=== PATIENT | female | born 1950 | race Caucasian/White ===

== ENCOUNTER 2016-10-07 20:26 | Emergency (ER) | payer MEDICARE, MEDICAID ==
[2016-10-07 20:45] VITALS: BP 176/76
--- NOTE | 2016-10-07 21:08 | EDM.PDOC ---
ED HPI LOWER BACK PAIN/INJURY - General Chief Complaint: Back Pain or Injury Stated Complaint: BACK PAIN Time Seen by Provider: 10/07/16 21:04 Source of Information: Reports: Provider History Limitations: Reports: No limitations - History of Present Illness INITIAL COMMENTS - FREE TEXT/NARRATIVE: HISTORY AND PHYSICAL: [Mentally challenged woman who is brought in by her caregiver having been found in the bathroom in complaining of her back pain] History of Present Illness: [Caregiver states they found her in a semisitting position with her head resting against the wall. The nurse recommended she be brought to the emergency room for further evaluation.] Review of Systems: As per history of present illness and below otherwise all systems reviewed and negative. Past medical history: As per history of present illness and as reviewed below otherwise noncontributory. Surgical history: As per history of present illness and as reviewed below otherwise noncontributory. Social history: No reported history of drug or alcohol abuse. Family history: As per history of present illness and as reviewed below otherwise noncontributory. Physical exam: Patient is alert animated in the room tries to speak but it is unrecognizable speech pattern HEENT: Atraumatic, normocehpalic, pupils reactive, negative for conjunctival pallor or scleral icterus, mucous membranes moist, throat clear, neck supple, nontender, trachea midline. Nontender with palpation to her head there are no abrasions to the scalp. No hematomas are noted. Lungs: Clear to auscultation, breath sounds equal bilaterally, chest non tender. Heart: S1S2, regular, negative for clicks, rubs, or JVD. Abdomen: Soft, nondistended, nontender. Negative for masses or hepatossplenmegaly. Negative for costovertebral tenderness. Nontender with palpation to her back no abrasions were noted. Full range of motion is from Pelvis: Stable nontender. Genitourinary: Deferred. Rectal: Deferred Extremities: Atraumatic, negative for cords or calf pain. Patient has joint degeneration and arthritic hands. Her examination she keeps hitting her right hand I asked about pain. Full range of motion noted to both extremities upper and lower Neurovascular unremarkable. Neuro: Awake, alert, oriented. Cranial nerves II through XII unremarkable. Cerebellum unremarkable. Motor and sensory unremarkable throughout. Exam nonfocal. Diagnostics: [X-rays 2 right hand left elbow and lumbar spine all negative with degenerative joint disease] Therapeutics: [] Impression: [Degenerative joint disease] Plan: [Home Maintain regular activity Tylenol for discomfort Followup with her primary care provider] Definitive disposition and diagnosis as appropriate pending reevaluation and review of above. Timing/Duration: Reports: Hour(s): Location: Reports: lower Quality: Reports: Ache Severity: mild Place of Occurrence: home Improves with: Reports: None Worsens with: Reports: None Context: Reports: fall (in her bathroom) - Related Data Allergies/ADRs: Allergies Allergy/AdvReac Type Severity Reaction Status Date / Time ibuprofen Allergy Other Verified 10/07/16 20:53 Home Meds: Home Meds Maynor Carb/MgOx/D3/B12/FA/B6/Bor [Folgard OS] 1 tab PO BID 08/01/15 [History] Calcium Polycarbophil [Fiber Tabs] 1 tab PO BID 08/01/15 [History] Omeprazole 1 cap PO DAILY 08/01/15 [History] Polyvinyl Alcohol/Povidone/Pf [Refresh Classic Eye Drops] 1 drop EYEBOTH BID [History] Ramipril [Altace] 1 tab PO DAILY 08/01/15 [History] Multivitamins [Tab-A-Digna] 1 tab PO DAILY 04/13/16 [History] Past Medical History HEENT History: Reports: None Other HEENT History: wears glasses Cardiovascular History: Reports: Hypertension Respiratory History: Reports: None Gastrointestinal History: Reports: GERD Genitourinary History: Reports: None 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 Nonverbal. Supposedly understand but hard to assess sec. to agitation. Psychiatric History: Reports: Other (see below) Other Psychiatric History: mentally challenged Endocrine/Metabolic History: Reports: None Hematologic History: Reports: None Immunologic History: Reports: None Oncologic (Cancer) History: Reports: None Dermatologic History: Reports: None - Past Surgical History Head Surgeries/Procedures: Reports: None HEENT Surgical History: Reports: None Cardiovascular Surgical History: Reports: None Respiratory Surgical History: Reports: None GI Surgical History: Reports: Colonoscopy Female Surgical History: Reports: None Endocrine Surgical History: Reports: None Neurological Surgical History: Reports: None Musculoskeletal Surgical History: Reports: Hip replacement, Knee replacement, Shoulder replacement Social & Family History - Family History Family Medical History: Noncontributory - Tobacco Use Smoking Status *Q: Never Smoker - Caffeine Use Caffeine Use: Reports: Coffee - Recreational Drug Use Recreational Drug Use: No Drug Use in Last 12 Months: No ED ROS GENERAL - Review of Systems Review Of Systems: ROS reveals no pertinent complaints other than HPI. ED EXAM,LOWER BACK PAIN/INJURY - Physical Exam Exam: See Below (see dictation) Course - Vital Signs Last Recorded V/S: Last Vital Signs Temp 36.9 C 10/07/16 20:42 Pulse 93 10/07/16 20:42 Resp 20 10/07/16 20:42 BP 176/76 H 10/07/16 20:42 Pulse Ox 95 10/07/16 20:42 - Orders/Labs/Meds Orders: Active Orders 24 hr Category Date Time Status Elbow 2V Lt [CR] Stat Exams 10/07/16 21:43 Taken Hand 2V Rt [CR] Stat Exams 10/07/16 21:08 Taken Lumbar Spine 2 or 3V [CR] Stat Exams 10/07/16 21:08 Taken Departure - Departure Time of Disposition: 22:20 Disposition: Home, Self-Care 01 Condition: good Clinical Impression: Degenerative joint disease Qualifiers: Osteoarthritis location: multiple joints Osteoarthritis type: unspecified Qualified Code(s): M15.9 - Polyosteoarthritis, unspecified Forms: ED Department Discharge Additional Instructions: The following information is given to patients seen in the emergency department who are being discharged to home. This information is to outline your options for follow-up care. We provide all patients seen in our emergency department with a follow-up referral. The need for follow-up, as well as the timing and circumstances, are variable depending upon the specifics of your emergency department visit. If you don't have a primary care physician on staff, we will provide you with a referral. We always advise you to contact your personal physician following an emergency department visit to inform them of the circumstance of the visit and for follow-up with them and/or the need for any referrals to a consulting specialist. The emergency department will also refer you to a specialist when appropriate. This referral assures that you have the opportunity for followup care with a specialist. All of these measure are taken in an effort to provide you with optimal care, which includes your followup. Under all circumstances we always encourage you to contact your private physician who remains a resource for coordinating your care. When calling for followup care, please make the office aware that this follow-up is from your recent emergency room visit. If for any reason you are refused follow-up, please contact the [facility] emergency department at and asked to speak to the emergency department charge nurse. Tylenol for discomfort Followup with your primary care provider Emergency room should his symptoms worsen - My Orders Last 24 Hours: My Active Orders 10/07/16 21:08 Hand 2V Rt [CR] Stat Lumbar Spine 2 or 3V [CR] Stat 10/07/16 21:43 Elbow 2V Lt [CR] Stat - Assessment/Plan Last 24 Hours: My Active Orders 10/07/16 21:08 Hand 2V Rt [CR] Stat Lumbar Spine 2 or 3V [CR] Stat 10/07/16 21:43 Elbow 2V Lt [CR] Stat
--- NOTE | 2016-10-09 12:00 | CR ---
EXAM DATE: 10/07/16 PATIENT'S AGE: 66 Patient: JOLYNN LLAMAS Facility: [place], [place] Site . Site : 1950 Study: XRay Extremity Right [id number]/7/2017 9:50:44 PM Ordering Physician: Doctor Diego Final Report: INDICATION: Trauma TECHNIQUE: Two views right hand COMPARISON: None FINDINGS: Bones: Alignment is normal. No fractures or bone lesions. Joint spaces: Degenerative changes DIP joints 2nd through 5th digits and degenerative changes carpal metacarpal joint space of the thumb. Soft tissues: Unremarkable. IMPRESSION: No evidence of acute trauma. Dictated by Samy Zepeda MD @ 10/07/2016 10:20:35 PM Dictated by: Samy Zepeda MD @ 10/07/2016 22:20:39 (Electronic Signature) Report Signed by Proxy. SANTOS
--- NOTE | 2016-10-09 12:01 | CR ---
EXAM DATE: 10/07/16 PATIENT'S AGE: 66 Patient: JOLYNN LLAMAS Facility: [place], [place] Site . Site : 1950 Study: XRay Spine Lumbar [id number]/7/2017 9:51:04 PM Ordering Physician: Doctor Diego Final Report: Lumbar spine. 3 VIEWS INDICATION: Injury. IMPRESSION: No visualized fracture. Grade 1 listhesis L4 on L5. Moderate hypertrophic changes of the lumbar facet joints. Discogenic narrowing at multiple levels in the lower thoracic spine. Arthroplasty appliances left hip. Dictated by Cornelio Guillory MD @ Oct 07 2016 10:05PM (Electronic Signature) Report Signed by Proxy. SANTOS
--- NOTE | 2016-10-09 12:02 | CR ---
MEXAM DATE: 10/07/16 PATIENT'S AGE: 66 Patient: JOLYNN LLAMAS Facility: [place], [place] Site . Site : 1950 Study: XRay Extremity Left [id number]/7/2017 9:53:47 PM Ordering Physician: Doctor Diego Final Report: Indication: Pain. Technique: Left elbow four views. Comparison: None. Findings: There is markedly altered morphology of the ulnohumeral and radial capitellar joints with distal humeral prosthesis. A discrete acute fracture line is not identified by radiography. Foci of increased attenuation in the soft tissues of the forearm may represent artifact or foreign body. Impression: Markedly altered morphology of the elbow likely related to prior surgery and/or trauma. No definite radiographic evidence of acute fracture. CT could be considered if there is continued clinical concern. Dictated by Dale Arnold MD @ 10/07/2016 10:28:19 PM Dictated by: Dale Arnold MD @ 10/07/2016 22:28:30 (Electronic Signature) Report Signed by Proxy. [facility] CAMPUSDayan
== END 2016-10-07 22:48 | disposition home or self-care (01) ==
LOC: MW.ED 20:26
DX: M15.9 Polyosteoarthritis, unspecified (principal); I10 Essential (primary) hypertension; G80.9 Cerebral palsy, unspecified; K21.9 Gastro-esophageal reflux disease without esophagitis; Z96.649 Presence of unspecified artificial hip joint; Z96.659 Presence of unspecified artificial knee joint; Z96.619 Presence of unspecified artificial shoulder joint; Z88.8 Allergy status to other drugs, medicaments and biological substances; Z79.899 Other long term (current) drug therapy
CPT/HCPCS: 72100; 72100-26; 73070-26-LT; 73070-LT; 73120-26-RT; 73120-RT; 99283; 99284

== ENCOUNTER 2017-02-08 15:02 | Emergency (ER) | payer MEDICARE, MEDICAID ==
--- NOTE | 2017-02-08 15:28 | EDM.PDOC ---
ED HPI GENERAL MEDICAL PROBLEM - General Chief Complaint: Upper Extremity Injury/Pain Stated Complaint: LEFT ARM PAIN FROM FALL Time Seen by Provider: 02/08/17 15:03 - History of Present Illness INITIAL COMMENTS - FREE TEXT/NARRATIVE: HISTORY AND PHYSICAL: History of present illness: The patient is a 67-year-old female who lives in a usp were [place] history of developmental delay and presents after having a simple fall today while at work. According to the caregiver at bedside she had a normal morning and ate her lunch and went to work and when she went to transfer and sit in a chair and instead of sitting in the seat, she sat on the arm and fell forward. The fall was witnessed and prior to the fall she was feeling at her baseline. The caregiver says that she does use a walker and has unsteadiness and it is not unusual that she would do something like this and miss the chair. Patient did not pass out or blackout per bystanders and has no complaints of head neck or back pain and initially told the caregiver that she did have some pain in her left upper extremity but now she denies that. According to the caregiver she is not moving her left upper extremity. She has no other complaints and has not had any nausea vomiting chest pain or shortness of breath and has no complaints of hip or knee pain. Patient is not a good historian but the caregiver bedside is familiar with this patient and people at work witnessed these events. The patient has a history of left elbow surgery for which the caregiver says she always has some diffuse soft tissue swelling is chronic near the olecranon. According to the caregiver the thing that they're most concerned about at the usp is that the patient will not use the left upper extremity. Review of systems: As per history of present illness and below otherwise all systems reviewed and negative. Past medical history: As per history of present illness and as reviewed below otherwise noncontributory. Surgical history: As per history of present illness and as reviewed below otherwise noncontributory. Social history: No reported history of drug or alcohol abuse. Family history: As per history of present illness and as reviewed below otherwise noncontributory. Physical exam: Gen.: Well-developed well-nourished female nontoxic and cooperative my exam and vital signs were noted by me HEENT: Atraumatic with the exception of a small area of soft tissue swelling and faint ecchymosis at the hairline just the left of midline on the forehead, there are no palpable skull deformities defects or lacerations,, normocephalic, pupils reactive, negative for conjunctival pallor or scleral icterus, mucous membranes moist, throat clear, neck supple, nontender, trachea midline. There is no facial swelling or deformities except that area before head. No midline step-offs tenderness defects of the cervical spine Lungs: Clear to auscultation, breath sounds equal bilaterally, chest nontender. Heart: S1S2, regular rate and rhythm no overt murmurs Abdomen: Soft, nondistended, nontender. NABS. Pelvis: Stable nontender. No lateral hip tenderness Genitourinary: Deferred. Rectal: Deferred. Extremities: Full range of motion without any defects or deformities of the right upper or right lower and left lower extremities. At the left upper extremity there is some visible ecchymosis seen at the antecubital fossa and some inhibition at range of motion and tenderness at the elbow and distal humerus areas. There are no palpable bony deformities and the compartments throughout the left upper extremity are soft There is no clavicle tenderness or proximal humeral tenderness and no distal forearm wrist and tenderness or defects or deformities. There is some diffuse loose soft tissue swelling at the left elbow which the caregiver says is not new and chronic since she had elbow surgery. There is no open component wound laceration or abrasion appreciated on the soft tissue of the humeral area. The legs are negative for cords or calf pain. Neurovascular unremarkable. Neuro: Awake, alert, and at baseline for her mental status per the caregiver at bedside. Motor and sensory unremarkable throughout. Exam nonfocal. Back there are no midline step-offs in his defects of the thoracic or lumbar spine no posterior rib tenderness Diagnostics: X-ray left humerus and forearm Therapeutics: Ice pack, IV maintenance fluids and Toradol long arm post mold I did discuss the case with our radiologist who feels that the angulation is about 50%. Please note that I reviewed the x-rays and have reevaluated the patient. Neurovascular is intact distally and the humerus is much more swollen than it was earlier. The patient is comfortable and sleeping in the room. I discussed the x-ray results with the caregiver and the need for transfer for emergent orthopedic care and she is agreeable. I discussed this case with Dr. Cobian the orthopedic surgeon at [facility] at [address] Ibrahim the ER physician at 1641 and both of except the patient for transfer. I will place a long arm post mold to prevent any movement so as not to convert this fracture to an open fracture. All films have been pushed to the receiving hospital Impression: Mid shaft left humerus fracture with 50% angulation and overriding Definitive disposition and diagnosis as appropriate pending reevaluation and review of above. - Related Data Allergies Allergy/AdvReac Type Severity Reaction Status Date / Time ibuprofen Allergy Other Verified 02/08/17 15:15 Home Meds: Home Meds Maynor Carb/MgOx/D3/B12/FA/B6/Bor [Folgard OS] 1 tab PO BID 08/01/15 [History] Calcium Polycarbophil [Fiber Tabs] 1 tab PO BID 08/01/15 [History] Omeprazole 1 cap PO DAILY 08/01/15 [History] Polyvinyl Alcohol/Povidone/Pf [Refresh Classic Eye Drops] 1 drop EYEBOTH BID [History] Ramipril [Altace] 1 tab PO DAILY 08/01/15 [History] Multivitamins [Tab-A-Digna] 1 tab PO DAILY 04/13/16 [History] Past Medical History HEENT History: Reports: None Other HEENT History: wears glasses Cardiovascular History: Reports: Hypertension Respiratory History: Reports: None Gastrointestinal History: Reports: GERD Genitourinary History: Reports: None 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 Nonverbal. Supposedly understand but hard to assess sec. to agitation. Psychiatric History: Reports: Other (See Below) Other Psychiatric History: mentally challenged Endocrine/Metabolic History: Reports: None Hematologic History: Reports: None Immunologic History: Reports: None Oncologic (Cancer) History: Reports: None Dermatologic History: Reports: None - Past Surgical History Musculoskeletal Surgical History: Reports: Hip Replacement, Knee Replacement, Shoulder Replacement Social & Family History - Family History Family Medical History: Noncontributory - Tobacco Use Smoking Status *Q: Never Smoker - Caffeine Use Caffeine Use: Reports: Coffee - Recreational Drug Use Recreational Drug Use: No Drug Use in Last 12 Months: No Review of Systems - Review of Systems Review Of Systems: ROS reveals no pertinent complaints other than HPI. ED EXAM, GENERAL - Physical Exam Exam: See Below (See dictation) Course - Vital Signs Last Recorded V/S: Last Vital Signs Temp 36.1 C 02/08/17 15:02 Pulse 54 L 02/08/17 15:02 Resp 24 H 02/08/17 15:02 BP 181/90 H 02/08/17 15:02 Pulse Ox 98 02/08/17 15:02 Departure - Departure Time of Disposition: 16:45 Disposition: DC/Tfer to Acute Hospital 02 Condition: Good Clinical Impression: Humerus shaft fracture Qualifiers: Encounter type: initial encounter Fracture type: closed Fracture morphology: unspecified fracture morphology Laterality: left Qualified Code(s): S42.302A - Unspecified fracture of shaft of humerus, left arm, initial encounter for closed fracture - Discharge Information Referrals: Neal Ortega MD [Primary Care Provider] - Forms: ED Department Discharge
--- NOTE | 2017-02-08 16:21 | CT ---
EXAMINATION: Non contrast CT head. Coronal and sagittal reformats. HISTORY: Pain FINDINGS: No evidence of intra or extra axial hemorrhage, mass, midline shift, hydrocephalus or edema. No hypoattenuation changes in the major vascular territories to suggest acute infarct. No abnormal intracranial calcifications are detected. No evidence of substantial vascular calcificat ions. The orbits and globes are symmetric. Paranasal sinuses and mastoid air cells are well aerated without substantial findings. Pituitary fossa appears unremarkable. There is moderate cerebellar atrophy Calvarium is intact. No evidence of skull fracture. IMPRESSION: 1. No acute intracranial findings.
--- NOTE | 2017-02-08 16:28 | CR ---
EXAMINATION: Left humerus and left forearm HISTORY: Fall COMPARISON: None TECHNIQUE: 2 views of the left humerus and 2 views of the left forearm FINDINGS: There is a displaced moderately angulated oblique mid left humerus fracture identified with overlying soft tissue swelling. Left elbow hardware is noted. Underlying osteoarthritic changes and expansion of the trochlear notch. Erosive changes are noted involving the radial head. There is a cur vilinear ossific density overlying the olecranon, likely chronic. Remaining osseous structures appear osteopenic. IMPRESSION: 1. Displaced and moderately angulated mid left humerus fracture.
[2017-02-08] MEDS ORDERED: Ketorolac 30 MG/ML SDV IVPUSH ONE (16:47)
[2017-02-08] MEDS ORDERED: Dextrose 5%-0.9% NaCl 1,000 ML IV SCH (17:00)
[2017-02-08 19:55] VITALS: BP 174/87
== END 2017-02-08 18:00 ==
LOC: MW.ED 15:02
DX: S42.302A Unspecified fracture of shaft of humerus, left arm, initial encounter for closed fracture (principal); I10 Essential (primary) hypertension; K21.9 Gastro-esophageal reflux disease without esophagitis; G80.9 Cerebral palsy, unspecified; Z88.6 Allergy status to analgesic agent; Z79.899 Other long term (current) drug therapy; Z96.649 Presence of unspecified artificial hip joint; Z96.659 Presence of unspecified artificial knee joint; Z96.619 Presence of unspecified artificial shoulder joint; W19.XXXA Unspecified fall, initial encounter
CPT/HCPCS: 70450; 73060; 73090; 96361; 96374; 99285; J1885; J7042; 99283

== ENCOUNTER 2020-11-04 16:41 | Emergency (ER) | payer MEDICARE, MEDICAID ==
[2020-11-04] MEDS ORDERED: Sodium Chloride 0.9% 10 ML Syringe FLUSH PRN (16:57)
[2020-11-04] MEDS ORDERED: Sodium Chloride 0.9% 2.5 ML Syringe FLUSH PRN (16:57)
[2020-11-04 17:49] LABS: BLOOD UREA NITROGEN,BUN 20 mg/dL (7.0-18.0); CARBON DIOXIDE,CO2 22.4 mmol/L (21.0-32.0); CHLORIDE,CL 101 mmol/L (98-107); GLUCOSE RANDOM 141 mg/dL (74-106); LIPASE 848 U/L (73-393); POTASSIUM,K 3.3 mmol/L (3.5-5.1); SODIUM,NA 137 mmol/L (136-145)
--- NOTE | 2020-11-04 17:53 | PCM.EKG ---
#1 Interpretation EKG Interpretation Comments: EKG: As interpreted by ER physician: Gaetano: Nonspecific ST-T wave abnormalities Normal axis No evidence of ST elevation SC Normal sinus rhythm heart rate of 68
--- NOTE | 2020-11-04 18:07 | CT ---
For Patients: As a result of the Cures Act, medical imaging exams and procedure reports are released immediately into your electronic medical record. You may view this report before your referring provider. If you have questions, please contact your health care provider. INDICATION: Altered mental status. Comparison 02/08/2017. TECHNIQUE: Noncontrast CT head. FINDINGS: Stable chronic atrophy of the cerebellum. Finding is nonspecific and can be seen with chronic phenytoin use, alcoholic encephalopathy or chronic vertebral basilar insufficiency. No acute intracranial hemorrhage, acute infarct, mass effect, or fracture. No midline shift. No abnormal ventricular dilatation. Normal calvarium skullbase. Visualized paranasal sinuses mastoid air cells are clear. Normal orbits bilaterally. IMPRESSION: 1. No interval change. 2. No acute intracranial abnormality 3. Stable chronic disproportionate atrophy of the cerebellum. Finding is nonspecific and differential considerations are broad and include chronic phenytoin use, alcoholic encephalopathy or chronic vertebral basilar insufficiency Please note that all CT scans at this facility use dose modulation, iterative reconstruction, and/or weight-based dosing when appropriate to reduce radiation dose to as low as reasonably achievable. Dictated by Addy Camarena MD @ 11/04/2020 6:06:[address] Addy Camarena @ Nov 04 2020 6:06PM
[2020-11-04] MEDS ORDERED: Potassium Chloride 40 MEQ in Sodium Chloride 0.9% 480 ML IV ONE (18:20)
[2020-11-04] MEDS ORDERED: Magnesium Sulfate (4.06 MEQ/ML) 5 GM/10 ML SDV IV STA (18:21)
[2020-11-04] MEDS ORDERED: Potassium Chloride Riders 40 MEQ in Premix Bag 1 BAG IV ONE (18:31)
--- NOTE | 2020-11-04 18:31 | EDM.PDOC ---
ED HPI GENERAL MEDICAL PROBLEM - General Chief Complaint: Abdominal Pain Stated Complaint: ABDOMINAL PAIN Time Seen by Provider: 11/04/20 16:50 Source of Information: Reports: EMS - History of Present Illness INITIAL COMMENTS - FREE TEXT/NARRATIVE: HISTORY AND PHYSICAL: History of present illness: The patient is a 70-year-old with history of cerebral palsy (presents to the emergency department via EMS after having a syncopal episode in the shower. EMS reports that the patient had had an bowel accident and required staff to assist her with cleaning. During the shower the patient became unresponsive and the staff lowered the patient to the ground. The incident lasted approximately 30 seconds. EMS reports the patient vomited 5 times today. Apparently the patient is to have some type of abdominal surgery but EMS is unsure. EMS reports her glucose at 145. The patient is unable to communicate. Review of systems: As per history of present illness and below otherwise all systems reviewed and negative. Past medical history: As per history of present illness and as reviewed below otherwise noncontributory. Surgical history: As per history of present illness and as reviewed below otherwise noncontributory. Social history: See social history for further information Family history: As per history of present illness and as reviewed below otherwise noncontributory. Physical exam: General: Well developed and well nourished. Alert and patient is unable to communicate. Nontoxic in appearance and in no acute distress. Vital signs are stable and have been reviewed by me. Nursing notes were reviewed. HEENT: Atraumatic, normocephalic, pupils equal and reactive bilaterally, negative for conjunctival pallor or scleral icterus, mucous membranes moist, TMs normal bilaterally, throat clear, neck supple, nontender, trachea midline. No drooling or trismus noted. No meningeal signs. No hot potato voice noted. Lungs: Clear to auscultation bilaterally. No wheezes, rales, or rhonchi. Chest nontender. Normal work of breathing, no accessory muscles used. Heart: S1S2, regular rate and rhythm without overt murmur, gallops, or rubs. No JVD. No peripheral edema Abdomen: Soft, nondistended, nontender. Hypo-bowel sounds. Negative for masses or costovertebral tenderness. Skin: Intact, warm, dry. No lesions or rashes noted. Hematologic: No petechiae or purpra. Mucosa appropriate color and normal nail bed color and refill. Extremities: Atraumatic, moves all extremities per self without difficulty or deficits, negative for cords or calf pain. Neurovascular unremarkable. Neuro: The patient responds to verbal commands and will attempt answering with garbled response. Notes: *This patient was seen and evaluated during the 2019 SARS-CoV-2 novel coronavirus pandemic period. Community viral transmission is ongoing at time of this encounter and the emergency department is operating under pandemic response procedures. As stated above the patient has a history of cerebral palsy and is unable to verbally communicate with staff. EMS knows very little about the patient except that she had syncopal episode while taking a shower and that she is to have some type of abdominal surgery but no unsure what it is. Patient did vomit 5 times today. I attempted to call [facility] and was unable to get through. I then called her emergency contact Kasandra at [phone] and had to leave a message. I will work the patient up as though she has altered mental status since I do not know her baseline. I will do a cardiac work-up due to her syncopal episode. And I will do a abdominal work-up due to her vomiting and some type of abdominal surgery. Dr. Charlton consulted on workup and care of patient. 18:00 the patient's CMP is remarkable for potassium of 3.3, BUN of 20, creatinine 1.6, glucose 141, calcium 10.2, magnesium 1.6, total bilirubin, AST 223, ALT 432, alkaline phosphatase, troponin less than 0.050, lipase elevated at 847. I will treat her potassium 3.3 with 40 mEq of potassium IV and her magnesium of 1.6 with 1 g of IV magnesium. Spoke with the emergency contact Kasandra, who told me that the patient has a hiatal hernia with Dr. Shetty November 14, 2028. Nhan had that that is why the patient was vomiting. But upon finding out the diagnosis of pancreatitis stated that the patient had complained of back pain. I have ordered an ultrasound of the gallbladder pancreas. Abdominal CT per radiologist impression: Demonstration of mild, dilated fluid- filled loops of central small bowel likely representing enteritis changes. Otherwise no definite acute intra-abdominal abnormalities appreciated. Demonstration of intrathoracic stomach. Sequela of likely old renal parenchymal injuries. Head CT per radiologist impression:1. No interval change.2. No acute intracranial abnormality 3. Stable chronic disproportionate atrophy of the cerebellum. Finding is nonspecific and differential considerations are broad and include chronic phenytoin use, alcoholic encephalopathy or chronic vertebral basilar insufficiency 2008: Dr. Ann consulted on results and care of patient. The patient's ultrasound radiologist IMPRESSION:Limited study.Cholelithiasis. Mild gallbladder wall thickening. In the correct clinical setting, with fever and elevated white count, the findings could represent cholecystitis. Right renal scarring. Increased renal parenchymal echogenicity consistent with medical renal disease. An apparent 2.4 cm parapelvic right renal cyst. Limited evaluation of the pancreas. I spoke with Dr. Baxter the hospitalist regarding possible admission for patient's pancreatitis, but Dr. Baxter was concerned regarding the CT reading of intrathoracic stomach appreciated with organoaxial volvulus. He felt this could be a immediate surgical need question. I called 1 call [facility] and was told they were on diversion. I then called our surgeon Dr. Baxter, and thoroughly explained the situation he felt the patient needed to be transferred to [facility], but could wait for the hour to see if the diversion lifted. I contacted Kasandra the [facility] employee benefits attorney and informed her of the results and of [facility] being on diversion. She feels that she is okay to wait and would like for me to call 1 call [facility] in 1 hour and if at that time they are still on diversion to try [facility] in [place]. I reassessed the patient and she is having no abdominal pain and her vital signs are stable. 21:07 [facility] 1 call returned phone call and stated they are still on diversion and I am unsure when they will be off diversion. I will call [facility] in [place] for possible transfer. I spoke with 1 call cardioverted because he ate and Dr. Garner the surgeon who had me speak to Dr. Clarence goetz regarding admission. Patient was accepted by Dr. Lima as an inpatient. We have called for ambulance transfer ALS. I notified Kasandra the POA of the impending transfer to [facility] in [place]. And she is excepting of the plan. 22:39 the patient remained stable in the ambulance is here for transfer. Diagnostics: CBC, CMP, lipase, troponin, magnesium, CT head, CT abdomen, abdominal ultrasound Therapeutics: IV fluids, potassium 40 mEq IV, magnesium 1 g Impression: Pancreatitis, possible obstruction Definitive disposition and diagnosis as appropriate pending reevaluation and review of above. abdominal Pain Score (Numeric/FACES): 8 - Related Data Allergies Allergy/AdvReac Type Severity Reaction Status Date / Time aspirin Allergy Other Verified 11/04/20 16:57 ibuprofen Allergy Other Verified 11/04/20 16:57 Home Meds: Home Meds Omeprazole 1 cap PO ACBREAKFAST 08/01/15 [History] Polyvinyl Alcohol/Povidone/Pf [Refresh Classic Eye Drops] 1 drop EYEBOTH BID 08/01/15 [History] calcium polycarbophiL [Fiber Tabs] 625 mg PO BID 08/01/15 [History] Multivitamins [Tab-A-Digna] 1 tab PO DAILY 04/13/16 [History] Calcium Carbonate/Vitamin D3 [Calcium 600 mg-Vit D3 5 Mcg Tb] 1 each PO BID 11/04/20 [History] Cholecalciferol (Vitamin D3) [Vitamin D3] 2,000 unit PO DAILY 11/04/20 [History] Hydrochlorothiazide/Lisinopril [Lisinopril/HCTZ 10-12.5 MG] 1 tab PO DAILY 11/04/20 [History] amLODIPine [Norvasc] 5 mg PO DAILY 11/04/20 [History] Past Medical History - Past Health History Medical/Surgical History: Denies Medical/Surgical History HEENT History: Reports: None Other HEENT History: wears glasses Cardiovascular History: Reports: Hypertension Respiratory History: Reports: None Gastrointestinal History: Reports: GERD Genitourinary History: Reports: None 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 Nonverbal. Supposedly understand but hard to assess sec. to agitation. Psychiatric History: Reports: Other (See Below) Other Psychiatric History: mentally challenged Endocrine/Metabolic History: Reports: None Hematologic History: Reports: None Immunologic History: Reports: None Oncologic (Cancer) History: Reports: None Dermatologic History: Reports: None - Infectious Disease History Infectious Disease History: Reports: None - Past Surgical History Head Surgeries/Procedures: Reports: None HEENT Surgical History: Reports: None Cardiovascular Surgical History: Reports: None Respiratory Surgical History: Reports: None GI Surgical History: Reports: Colonoscopy Female Surgical History: Reports: None Endocrine Surgical History: Reports: None Neurological Surgical History: Reports: None Musculoskeletal Surgical History: Reports: Hip Replacement, Knee Replacement, Shoulder Replacement Social & Family History - Family History Family Medical History: No Pertinent Family History - Tobacco Use Tobacco Use Status *Q: Unknown Ever Used Tobacco - Caffeine Use Caffeine Use: Reports: Coffee ED ROS GENERAL - Review of Systems Review Of Systems: Comprehensive ROS is negative, except as noted in HPI. ED EXAM, GENERAL - Physical Exam Exam: See Below (See exam) Course - Vital Signs Last Recorded V/S: Last Vital Signs Temp 97.9 F 11/04/20 16:42 Pulse 64 11/04/20 21:33 Resp 16 11/04/20 21:33 BP 120/57 L 11/04/20 21:33 Pulse Ox 95 11/04/20 21:33 - Orders/Labs/Meds Orders: Active Orders 24 hr Category Date Time Status EKG Documentation Completion [RC] STAT Care 11/04/20 16:57 Active Sodium Chloride 0.9% [Normal Saline] 1,000 ml Med 11/04/20 18:45 Active IV ASDIRECTED Sodium Chloride 0.9% [Saline Flush] Med 11/04/20 16:57 Active 10 ml FLUSH ASDIRECTED PRN Sodium Chloride 0.9% [Saline Flush] Med 11/04/20 16:57 Active 2.5 ml FLUSH ASDIRECTED PRN Saline Lock Insert [OM.PC] Stat Oth 11/04/20 16:57 Ordered Medication Orders Sodium Chloride (Normal Saline) 1,000 mls @ 100 mls/hr IV ASDIRECTED KAILA Last Admin: 11/04/20 19:18 Dose: 100 mls/hr Documented by: [email or web address] Sodium Chloride (Sodium Chloride 0.9% 10 Ml Syringe) 10 ml FLUSH ASDIRECTED PRN PRN Reason: Keep Vein Open Last Admin: 11/04/20 17:25 Dose: 10 ml Documented by: [id number] Sodium Chloride (Sodium Chloride 0.9% 2.5 Ml Syringe) 2.5 ml FLUSH ASDIRECTED PRN PRN Reason: Keep Vein Open Last Admin: 11/04/20 17:25 Dose: 2.5 ml Documented by: [email or web address] Labs: Laboratory Tests 11/04/20 11/04/20 11/04/20 Range/Units 17:17 17:17 18:52 WBC 17.64 H (4.0-11.0) K/uL RBC 4.70 (4.30-5.90) M/uL Hgb 13.8 (12.0-16.0) g/dL Hct 42.3 (36.0-46.0) % MCV 90.0 (80.0-98.0) fL MCH 29.4 (27.0-32.0) pg MCHC 32.6 (31.0-37.0) g/dL RDW Std Deviation 44.6 (28.0-62.0) fl RDW Coeff of Eduar 14 (11.0-15.0) % Plt Count 244 (150-400) K/uL MPV 9.90 (7.40-12.00) fL Neut % (Auto) 88.7 H (48.0-80.0) % Lymph % (Auto) 3.7 L (16.0-40.0) % Ramsey % (Auto) 7.3 (0.0-15.0) % Eos % (Auto) 0.2 (0.0-7.0) % Baso % (Auto) 0.1 (0.0-1.5) % Neut # (Auto) 15.7 H (1.4-5.7) K/uL Lymph # (Auto) 0.7 (0.6-2.4) K/uL Ramsey # (Auto) 1.3 H (0.0-0.8) K/uL Eos # (Auto) 0.0 (0.0-0.7) K/uL Baso # (Auto) 0.0 (0.0-0.1) K/uL Nucleated RBC % 0.0 /100WBC Nucleated RBCs # 0 K/uL Sodium 137 (136-145) mmol/L Potassium 3.3 L (3.5-5.1) mmol/L Chloride 101 (98-107) mmol/L Carbon Dioxide 22.4 (21.0-32.0) mmol/L BUN 20 H (7.0-18.0) mg/dL Creatinine 1.6 H (0.6-1.0) mg/dL Est Cr Clr Drug Dosing TNP Estimated GFR (MDRD) 31.7 ml/min Glucose 141 H (74-106) mg/dL Calcium 10.2 H (8.5-10.1) mg/dL Magnesium 1.6 L (1.8-2.4) mg/dL Total Bilirubin 1.1 H (0.2-1.0) mg/dL AST 223 H (15-37) IU/L ALT 432 H (14-63) IU/L Alkaline Phosphatase 406 H (46-116) U/L Troponin I < 0.050 (0.000-0.056) ng/mL Total Protein 8.1 (6.4-8.2) g/dL Albumin 3.9 (3.4-5.0) g/dL Globulin 4.2 H (2.6-4.0) g/dL Albumin/Globulin Ratio 0.9 (0.9-1.6) Lipase 848 H (73-393) U/L Urine Color Urine Appearance Urine pH (5.0-8.0) Ur Specific [place] (1.001-1.035) Urine Protein (NEGATIVE) mg/dL Urine Glucose (UA) (NEGATIVE) mg/dL Urine Ketones (NEGATIVE) mg/dL Urine Occult Blood (NEGATIVE) Urine Nitrite (NEGATIVE) Urine Bilirubin (NEGATIVE) Urine Ictotest Urine Urobilinogen (<2.0) EU/dL Ur Leukocyte Esterase (NEGATIVE) U Hyaline Cast (Auto) (0-2/LPF) Urine RBC (0-2/HPF) Urine WBC (0-5/HPF) Ur Epithelial Cells (NONE-FEW) Urine Bacteria (NEGATIVE) Urine Mucus (NONE-MOD) SARS-CoV-2 RNA (KASH) NEGATIVE (NEGATIVE) 11/04/20 Range/Units 21:50 WBC (4.0-11.0) K/uL RBC (4.30-5.90) M/uL Hgb (12.0-16.0) g/dL Hct (36.0-46.0) % MCV (80.0-98.0) fL MCH (27.0-32.0) pg MCHC (31.0-37.0) g/dL RDW Std Deviation (28.0-62.0) fl RDW Coeff of Eduar (11.0-15.0) % Plt Count (150-400) K/uL MPV (7.40-12.00) fL Neut % (Auto) (48.0-80.0) % Lymph % (Auto) (16.0-40.0) % Ramsey % (Auto) (0.0-15.0) % Eos % (Auto) (0.0-7.0) % Baso % (Auto) (0.0-1.5) % Neut # (Auto) (1.4-5.7) K/uL Lymph # (Auto) (0.6-2.4) K/uL Ramsey # (Auto) (0.0-0.8) K/uL Eos # (Auto) (0.0-0.7) K/uL Baso # (Auto) (0.0-0.1) K/uL Nucleated RBC % /100WBC Nucleated RBCs # K/uL Sodium (136-145) mmol/L Potassium (3.5-5.1) mmol/L Chloride (98-107) mmol/L Carbon Dioxide (21.0-32.0) mmol/L BUN (7.0-18.0) mg/dL Creatinine (0.6-1.0) mg/dL Est Cr Clr Drug Dosing Estimated GFR (MDRD) ml/min Glucose (74-106) mg/dL Calcium (8.5-10.1) mg/dL Magnesium (1.8-2.4) mg/dL Total Bilirubin (0.2-1.0) mg/dL AST (15-37) IU/L ALT (14-63) IU/L Alkaline Phosphatase (46-116) U/L Troponin I (0.000-0.056) ng/mL Total Protein (6.4-8.2) g/dL Albumin (3.4-5.0) g/dL Globulin (2.6-4.0) g/dL Albumin/Globulin Ratio (0.9-1.6) Lipase (73-393) U/L Urine Color YELLOW Urine Appearance SLT CLOUDY Urine pH 5.5 (5.0-8.0) Ur Specific [place] 1.020 (1.001-1.035) Urine Protein NEGATIVE (NEGATIVE) mg/dL Urine Glucose (UA) NEGATIVE (NEGATIVE) mg/dL Urine Ketones TRACE H (NEGATIVE) mg/dL Urine Occult Blood MODERATE H (NEGATIVE) Urine Nitrite NEGATIVE (NEGATIVE) Urine Bilirubin SMALL H (NEGATIVE) Urine Ictotest NEGATIVE Urine Urobilinogen 0.2 (<2.0) EU/dL Ur Leukocyte Esterase TRACE H (NEGATIVE) U Hyaline Cast (Auto) 0-2 (0-2/LPF) Urine RBC 0-3 (0-2/HPF) Urine WBC 0-4 (0-5/HPF) Ur Epithelial Cells FEW (NONE-FEW) Urine Bacteria 1+ H (NEGATIVE) Urine Mucus LIGHT (NONE-MOD) SARS-CoV-2 RNA (KASH) (NEGATIVE) Meds: Medications Generic Name Dose Route Start Last Admin Trade Name Freq PRN Reason Stop Dose Admin Sodium Chloride 1,000 mls @ 100 mls/hr 11/04/20 18:45 11/04/20 19:18 Normal Saline IV 100 mls/hr ASDIRECTED KAILA Administration Sodium Chloride 10 ml 11/04/20 16:57 11/04/20 17:25 Sodium Chloride 0.9% 10 Ml Syringe FLUSH 10 ml ASDIRECTED PRN Administration Keep Vein Open Sodium Chloride 2.5 ml 11/04/20 16:57 11/04/20 17:25 Sodium Chloride 0.9% 2.5 Ml Syringe FLUSH 2.5 ml ASDIRECTED PRN Administration Keep Vein Open Discontinued Medications Generic Name Dose Route Start Last Admin Trade Name Freq PRN Reason Stop Dose Admin Magnesium Sulfate 1 gm in 25 mls @ 25 mls/hr 11/04/20 19:00 11/04/20 19:20 Magnesium Sulfate In Water 2 Gm/50 Ml IV 11/04/20 19:59 25 mls/hr ONETIME ONE Administration Potassium Chloride 40 meq/ 100 mls @ 25 mls/hr 11/04/20 18:31 11/04/20 20:32 Premix IV 11/04/20 22:30 25 mls/hr ONETIME ONE Administration Magnesium Sulfate 1 gm 11/04/20 18:21 Magnesium Sulfate (4.06 Meq/Ml) 5 Gm/10 Ml Sdv IV 11/04/20 18:22 ONETIME STA Departure - Departure Time of Disposition: 21:32 Disposition: DC/Tfer to Acute Hospital 02 Condition: Good Clinical Impression: Pancreatitis Qualifiers: Chronicity: acute Pancreatitis type: unspecified pancreatitis type Acute pancreatitis complication: unspecified Qualified Code(s): K85.90 - Acute pancreatitis without necrosis or infection, unspecified - Discharge Information *PRESCRIPTION DRUG MONITORING PROGRAM REVIEWED*: Not Applicable *COPY OF PRESCRIPTION DRUG MONITORING REPORT IN PATIENT MARLA: Not Applicable Referrals: PCP,None [Primary Care Provider] - Forms: ED Department Discharge Sepsis Event Note (ED) - Evaluation Sepsis Screening Result: No Definite Risk - Focused Exam Vital Signs: Vital Signs Temp Pulse Resp BP Pulse Ox 11/04/20 21:33 64 16 120/57 L 95 11/04/20 20:36 70 16 92/48 L 97 11/04/20 18:22 70 102/59 L 96 11/04/20 17:22 96 17 95/49 L 97 11/04/20 16:42 97.9 F 79 18 86/59 L 96 - My Orders Last 24 Hours: My Active Orders 11/04/20 16:57 EKG Documentation Completion [RC] STAT Sodium Chloride 0.9% [Saline Flush] 10 ml FLUSH ASDIRECTED PRN Sodium Chloride 0.9% [Saline Flush] 2.5 ml FLUSH ASDIRECTED PRN Saline Lock Insert [OM.PC] Stat 11/04/20 18:45 Sodium Chloride 0.9% [Normal Saline] 1,000 ml IV ASDIRECTED - Assessment/Plan Last 24 Hours: My Active Orders 11/04/20 16:57 EKG Documentation Completion [RC] STAT Sodium Chloride 0.9% [Saline Flush] 10 ml FLUSH ASDIRECTED PRN Sodium Chloride 0.9% [Saline Flush] 2.5 ml FLUSH ASDIRECTED PRN Saline Lock Insert [OM.PC] Stat 11/04/20 18:45 Sodium Chloride 0.9% [Normal Saline] 1,000 ml IV ASDIRECTED
--- NOTE | 2020-11-04 18:36 | CT ---
For Patients: As a result of the Century Cures Act, medical imaging exams and procedure reports are released immediately into your electronic medical record. You may view this report before your referring provider. If you have questions, please contact your health care provider. Indication: Abdominal pain, nonverbal patient Technique: Volumetric multidetector CT images of the abdomen and pelvis were without the administration of intravenous contrast. Comparison: None available. Findings: There is minimal dependent basilar atelectasis seen within the lung bases. The liver is normal in attenuation without intrahepatic biliary ductal dilatation. The gallbladder is unremarkable without evidence of radiopaque calculus. There is no significant common biliary ductal dilatation or abrupt cut off. The spleen is normal in attenuation and size. There is a intrathoracic stomach appreciated with organoaxial volvulus. There is mild to moderate pancreatic atrophy. The adrenal glands are unremarkable. The bilateral kidneys demonstrate sequela of prior renal parenchymal injury and cystic changes left greater than right without evidence of distal obstructive calculus. There is a mild amount of stool seen within the distal colon with minimal distal colonic diverticulosis. There are multiple dilated fluid-filled loops of central small bowel which may represent mild enteritis change. The appendix is unremarkable. There is no significant mesenteric, retroperitoneal, or pelvic sidewall lymph nodes. The aorta is nonaneurysmal. There is no significant atherosclerotic disease appreciated. The solid pelvic viscera are grossly unremarkable. There is no free fluid or free air. There is mild diastasis of the rectus musculature. The lumbar vertebral body heights are grossly maintained with mild to moderate multilevel degenerative disc disease. There is moderate to severe facet arthrosis. Impression: Demonstration of mild, dilated fluid-filled loops of central small bowel likely representing enteritis changes. Otherwise no definite acute intra-abdominal abnormalities appreciated. Demonstration of intrathoracic stomach. Sequela of likely old renal parenchymal injuries. Please note that all CT scans at this facility use dose modulation, iterative reconstruction, and/or weight-based dosing when appropriate to reduce radiation dose to as low as reasonably achievable. Dictated by Manpreet Guardado MD @ 11/04/2020 6:35:[address] Manpreet Guardado @ Nov 04 2020 6:35PM
[2020-11-04] MEDS ORDERED: Sodium Chloride 0.9% 1,000 ML IV SCH (18:45)
[2020-11-04] MEDS ORDERED: Magnesium Sulfate/Water 1 GM/25 ML BAG IV ONE (19:00)
--- NOTE | 2020-11-04 19:18 | US ---
For Patients: As a result of the Cures Act, medical imaging exams and procedure reports are released immediately into your electronic medical record. You may view this report before your referring provider. If you have questions, please contact your health care provider. INDICATION: Pancreatitis TECHNIQUE: Ultrasound abdomen limited. Sonographic images of the right upper quadrant were obtained using dominguez-scale and color Doppler images. COMPARISON: A CT scan from the same date FINDINGS: Liver: Limited visualization. Unremarkable echotexture. No discrete hepatic lesion demonstrated. Gallbladder: Cholelithiasis and irregular sludge balls. Mild gallbladder wall thickening, measuring 4 mm. No pericholecystic fluid seen. A reported negative sonographic Casanova`s sign. Common bile duct: 3 mm. Pancreas: Not well seen due to obscuring bowel gas. Right kidney: 7.4 x 4.6 x 4.9 cm. Apparent irregular renal contour suggestive of scarring. Increased parenchymal echogenicity. A 2.4 x 2.9 cm irregular central renal hypoechoic structure could represent a parapelvic cyst. IMPRESSION: Limited study. Cholelithiasis. Mild gallbladder wall thickening. In the correct clinical setting, with fever and elevated white count, the findings could represent cholecystitis. Right renal scarring. Increased renal parenchymal echogenicity consistent with medical renal disease. An apparent 2.4 cm parapelvic right renal cyst. Limited evaluation of the pancreas. Dictated by Srikanth Willis MD @ 11/04/2020 7:16:[address] Srikanth Willis @ Nov 04 2020 7:16PM
[2020-11-04 21:34] VITALS: BP 120/57; PULSE 64
== END 2020-11-04 22:46 ==
LOC: MW.ED 16:41
DX: K85.90 Acute pancreatitis without necrosis or infection, unspecified (principal); R55 Syncope and collapse; I10 Essential (primary) hypertension; K21.9 Gastro-esophageal reflux disease without esophagitis; Z88.6 Allergy status to analgesic agent; Z79.899 Other long term (current) drug therapy; Z20.822 Contact with and (suspected) exposure to COVID-19
CPT/HCPCS: 36415; 70450; 74176; 76705; 80053; 81001; 83690; 83735; 84484; 85025; 93005; 96365; 96366; 96367; 99285; J3475; J3480; J7030; U0002

== ENCOUNTER 2022-07-11 11:17 | Inpatient (IN) | payer MEDICARE, MEDICAID ==
[2022-07-11] MEDS ORDERED: Sodium Chloride 0.9% 10 ML Syringe FLUSH PRN (11:33)
[2022-07-11] MEDS ORDERED: Sodium Chloride 0.9% 2.5 ML Syringe FLUSH PRN (11:33)
[2022-07-11] MEDS ORDERED: Piperacillin/Tazobactam 4.5 GM in Sodium Chloride 0.9% 100 ML IV ONE ×2 (11:35→14:30)
[2022-07-11] MEDS: Sodium Chloride 0.9% 500 ML IV SCH ×2 (12:19→14:37)
[2022-07-11 12:38] LABS: CARBON DIOXIDE,CO2 18.4 mmol/L (21.0-32.0); POTASSIUM,K 4.4 mmol/L (3.5-5.1)
[2022-07-11] MEDS ORDERED: Sodium Chloride 0.9% 500 ML IV SCH (13:00)
[2022-07-11] MEDS ORDERED: Morphine 4 MG/ML Syringe IVPUSH ONE (14:31)
[2022-07-11] MEDS ORDERED: Ondansetron 4 MG/2 ML SDV ONE (16:42)
[2022-07-11] MEDS ORDERED: Ondansetron 4 MG/2 ML SDV IVPUSH ONE (16:43)
[2022-07-11] MEDS ORDERED: Ondansetron 4 MG/2 ML SDV IVPUSH PRN (17:37)
[2022-07-11] MEDS: Sodium Chloride 0.9% 1,000 ML IV SCH (20:39)
[2022-07-11] MEDS: Piperacillin/Tazobactam 3.375 GM in Sodium Chloride 0.9% 50 ML IV SCH (20:40)
[2022-07-11] MEDS: Acetaminophen 325 MG Tab PO PRN (20:41)
[2022-07-12] MEDS ORDERED: Sodium Chloride 0.9% 1,000 ML IV ONE (00:35)
[2022-07-12] MEDS ORDERED: Norepinephrine 4 MG in Dextrose 5% in Water 246 ML IV SCH ×4 (01:30→03:00)
[2022-07-12] MEDS: Sodium Chloride 0.9% 1,000 ML IV SCH ×3 (01:55→20:54)
[2022-07-12] MEDS: Piperacillin/Tazobactam 3.375 GM in Sodium Chloride 0.9% 50 ML IV SCH ×4 (02:58→20:55)
[2022-07-12] MEDS ORDERED: Norepinephrine Bit/D5W Premix 250 ML IV SCH (03:15)
[2022-07-12 05:17] LABS: CARBON DIOXIDE,CO2 19.3 mmol/L (21.0-32.0); POTASSIUM,K 3.3 mmol/L (3.5-5.1)
[2022-07-12] MEDS ORDERED: Potassium Chloride 20 MEQ Tab.ER PO ONE (06:48)
[2022-07-12] MEDS: Potassium Chloride 100 ML IV SCH ×2 (08:13→09:58)
[2022-07-12] MEDS: Omeprazole 20 MG Cap.CR PO SCH (08:15)
[2022-07-12] MEDS: Acetaminophen 325 MG Tab PO PRN (11:26)
[2022-07-13] MEDS: Piperacillin/Tazobactam 3.375 GM in Sodium Chloride 0.9% 50 ML IV SCH ×2 (03:44→08:10)
[2022-07-13] MEDS: Sodium Chloride 0.9% 1,000 ML IV SCH ×3 (05:43→22:15)
[2022-07-13 06:23] LABS: CARBON DIOXIDE,CO2 18.9 mmol/L (21.0-32.0); POTASSIUM,K 3.8 mmol/L (3.5-5.1)
[2022-07-13] MEDS: Omeprazole 20 MG Cap.CR PO SCH (06:37)
[2022-07-13] MEDS ORDERED: Magnesium Sulfate/Water 2 GM in Premix Bag 1 BAG IV ONE (07:45)
[2022-07-13] MEDS ORDERED: Phosphorus #1 250 MG Tab PO ONE (07:45)
[2022-07-13] MEDS: Sulfamethoxazole/Trimethoprim 800-160 MG Tab PO SCH ×2 (13:53→21:34)
[2022-07-13] MEDS: metroNIDAZOLE 250 MG Tab PO SCH ×2 (13:53→21:34)
[2022-07-13] MEDS: Acetaminophen 325 MG Tab PO PRN (13:56)
[2022-07-14] MEDS ORDERED: Lisinopril/Hydrochlorothiazide 10-12.5 MG Tab PO SCH (05:15)
[2022-07-14] MEDS: metroNIDAZOLE 250 MG Tab PO SCH (05:27)
[2022-07-14 06:24] LABS: CARBON DIOXIDE,CO2 19.2 mmol/L (21.0-32.0); POTASSIUM,K 3.5 mmol/L (3.5-5.1)
[2022-07-14] MEDS: Sodium Chloride 0.9% 1,000 ML IV SCH (06:24)
[2022-07-14] MEDS: Omeprazole 20 MG Cap.CR PO SCH (06:30)
[2022-07-14] MEDS: Sulfamethoxazole/Trimethoprim 800-160 MG Tab PO SCH (08:40)
[2022-07-14 08:54] VITALS: BP 180/79; PULSE 67
== END 2022-07-14 10:50 | disposition home or self-care (01) | DRG 392 ==
LOC: MW.ED 11:17 → MW.MS 17:20 → MW.ICU 07-12 01:25 → OBSVTOIN 07-12 01:26 → MW.MS 07-12 18:27
PROVIDERS: ADMIT Internal Medicine; ATTEND Internal Medicine
DX: K52.9 Noninfective gastroenteritis and colitis, unspecified (principal); N17.9 Acute kidney failure, unspecified; N13.30 Unspecified hydronephrosis; E86.0 Dehydration; G31.84 Mild cognitive impairment of uncertain or unknown etiology; I12.9 Hypertensive chronic kidney disease with stage 1 through stage 4 chronic kidney disease, or unspecified chronic kidney disease; N18.9 Chronic kidney disease, unspecified; K21.9 Gastro-esophageal reflux disease without esophagitis; I95.9 Hypotension, unspecified; Z96.649 Presence of unspecified artificial hip joint; Z96.659 Presence of unspecified artificial knee joint; Z96.619 Presence of unspecified artificial shoulder joint; M15.9 Polyosteoarthritis, unspecified; Z20.822 Contact with and (suspected) exposure to COVID-19; E04.1 Nontoxic single thyroid nodule; Z86.69 Personal history of other diseases of the nervous system and sense organs; Z79.899 Other long term (current) drug therapy; Z87.19 Personal history of other diseases of the digestive system; Z88.8 Allergy status to other drugs, medicaments and biological substances; Z97.3 Presence of spectacles and contact lenses; Z98.890 Other specified postprocedural states
CPT/HCPCS: 36415; 36556; 70450; 70450-26; 71045; 71045-26; 72125; 72125-26; 74176; 74176-26; 76770; 76770-26; 80053; 81001; 83605; 83690; 83735; 84100; 84484; 85025; 85610; 87040; 87045; 87046; 87086; 87324; 87449; 87899; 93005; 93306; 96361; 96365; 96375; 96376; 97162-GP; 97530-GP; 99222; 99233; 99238; 99285-25; A9270-GY; G0378; J2270; J2405; J2543; J3475; J3480; J3490; J7030; J7040; J7050; U0002

== ENCOUNTER 2022-08-01 18:29 | Inpatient (IN) | payer MEDICARE, MEDICAID ==
[2022-08-01 22:32] LABS: BLOOD UREA NITROGEN,BUN 31 mg/dL (7.0-18.0); CARBON DIOXIDE,CO2 20.8 mmol/L (21.0-32.0); CHLORIDE,CL 102 mmol/L (98-107); GLUCOSE RANDOM 132 mg/dL (74-106); POTASSIUM,K 4.3 mmol/L (3.5-5.1); SODIUM,NA 136 mmol/L (136-145)
[2022-08-01 22:34] LABS: ESTIMATED GFR 31 mL/min (>60)
[2022-08-02] MEDS ORDERED: Lactated Ringers 1,000 ML IV SCH (01:15)
[2022-08-02] MEDS: Sodium Chloride 0.9% 1,000 ML IV SCH ×2 (04:13→14:31)
[2022-08-02 07:11] LABS: BLOOD UREA NITROGEN,BUN 29 mg/dL (7.0-18.0); CARBON DIOXIDE,CO2 20.8 mmol/L (21.0-32.0); CHLORIDE,CL 106 mmol/L (98-107); GLUCOSE RANDOM 94 mg/dL (74-106); POTASSIUM,K 3.7 mmol/L (3.5-5.1); SODIUM,NA 139 mmol/L (136-145)
[2022-08-02 07:12] LABS: ESTIMATED GFR 43 mL/min (>60)
[2022-08-02] MEDS ORDERED: Ondansetron 4 MG/2 ML SDV IVPUSH PRN (08:12)
[2022-08-02] MEDS ORDERED: Sodium Chloride 0.9% 2.5 ML Syringe FLUSH PRN (08:12)
[2022-08-02] MEDS ORDERED: Sodium Chloride 0.9% 10 ML Syringe FLUSH PRN (08:12)
[2022-08-02] MEDS ORDERED: Magnesium Sulfate/Water 4 GM in Premix Bag 1 BAG IV ONE (08:30)
[2022-08-02] MEDS: Pantoprazole 40 MG in Sodium Chloride 0.9% 10 ML IVPUSH SCH (10:28)
[2022-08-02] MEDS: Heparin Sodium 5,000 Units/ML Vial SUBCUT SCH ×2 (10:33→22:20)
[2022-08-02] MEDS: Potassium Chloride 20 MEQ in Premix Bag 1 BAG IV SCH ×2 (10:44→13:11)
[2022-08-02] MEDS ORDERED: Phenol 1.4% Oral Spray 177 ML Bottle MUCMEM PRN (11:41)
[2022-08-03] MEDS: Sodium Chloride 0.9% 1,000 ML IV SCH ×2 (02:39→15:09)
[2022-08-03 06:07] LABS: BLOOD UREA NITROGEN,BUN 16 mg/dL (7.0-18.0); CHLORIDE,CL 111 mmol/L (98-107); GLUCOSE RANDOM 81 mg/dL (74-106); POTASSIUM,K 3.8 mmol/L (3.5-5.1); SODIUM,NA 143 mmol/L (136-145)
[2022-08-03 06:08] LABS: ESTIMATED GFR 59 mL/min (>60)
[2022-08-03] MEDS: Pantoprazole 40 MG in Sodium Chloride 0.9% 10 ML IVPUSH SCH (08:20)
[2022-08-03] MEDS: Heparin Sodium 5,000 Units/ML Vial SUBCUT SCH ×2 (10:13→23:05)
[2022-08-04 07:10] LABS: BLOOD UREA NITROGEN,BUN 9 mg/dL (7.0-18.0); CARBON DIOXIDE,CO2 21.8 mmol/L (21.0-32.0); CHLORIDE,CL 111 mmol/L (98-107); GLUCOSE RANDOM 95 mg/dL (74-106); POTASSIUM,K 3.7 mmol/L (3.5-5.1); SODIUM,NA 145 mmol/L (136-145)
[2022-08-04 07:17] LABS: ESTIMATED GFR 67 mL/min (>60)
[2022-08-04 08:03] VITALS: PULSE 60
[2022-08-04] MEDS: Pantoprazole 40 MG in Sodium Chloride 0.9% 10 ML IVPUSH SCH (09:01)
[2022-08-04] MEDS: Heparin Sodium 5,000 Units/ML Vial SUBCUT SCH (10:18)
[2022-08-04 12:23] VITALS: BP 119/50
== END 2022-08-04 13:20 | disposition other institution (70) | DRG 389 ==
LOC: MW.ED 18:29 → MW.MS 08-02 01:10
PROVIDERS: ADMIT Hospitalist; ATTEND Hospitalist
DX: K56.609 Unspecified intestinal obstruction, unspecified as to partial versus complete obstruction (principal); N17.9 Acute kidney failure, unspecified; Z20.822 Contact with and (suspected) exposure to COVID-19; G80.9 Cerebral palsy, unspecified; E86.0 Dehydration; I10 Essential (primary) hypertension; K21.9 Gastro-esophageal reflux disease without esophagitis; Z96.649 Presence of unspecified artificial hip joint; Z96.659 Presence of unspecified artificial knee joint; Z96.619 Presence of unspecified artificial shoulder joint; Z88.6 Allergy status to analgesic agent; Z79.899 Other long term (current) drug therapy; Z90.49 Acquired absence of other specified parts of digestive tract
CPT/HCPCS: 36415; 74018 ×2; 74176; 76705; 80053; 81001; 85025; 96360; 99285; J7120; U0002; 74250; 74250-26; 80048; 82947; 83605; 83735; 84100; 87045; 87046; 87324; 87449; 87899; A9270-GY; C9113; J1644; J3475; J3480; J3490; J7030

== ENCOUNTER 2025-03-09 12:27 | Inpatient (IN) | payer MEDICARE, MEDICAID ==
[2025-03-09 13:54] LABS: A/G RATIO 0.9 (0.9-1.6); ALANINE AMINOTRANSFERASE,ALT 47.0 IU/L (14-63); ASPARTATE AMNIOTRANSFERASE,AST 35.0 IU/L (15-37); BILIRUBIN TOTAL 0.4 mg/dL (0.2-1.0); BLOOD UREA NITROGEN,BUN 35.0 mg/dL (7.0-18.0); CARBON DIOXIDE,CO2 17.8 mmol/L (21.0-32.0); CHLORIDE,CL 106.0 mmol/L (98-107); CREATININE 1.6 mg/dL (0.6-1.0); EST CRCL DRUG DOSING (CG) 23.29 mL/min; GLUCOSE RANDOM 93.0 mg/dL (74-106); POTASSIUM,K 3.9 mmol/L (3.5-5.1); PROTEIN TOTAL,TP 7.7 g/dL (6.4-8.2); SODIUM,NA 140.0 mmol/L (136-145)
[2025-03-09 13:56] LABS: BASOPHILS ABSOLUTE AUTO 0.03 K/uL (0.00-0.20); BASOPHILS PERCENT AUTO 0.5 % (0.0-1.0); EOSINOPHILS ABSOLUTE AUTO 0.11 K/uL (0.00-0.45); EOSINOPHILS PERCENT AUTO 1.8 % (0.0-6.0); ESTIMATED GFR 33.0 mL/min (>60); IMMATURE GRAN ABSOLUTE AUTO 0.02 K/uL (0.00-0.05); IMMATURE GRAN PERCENT AUTO 0.3 % (0.0-0.4); LYMPHOCYTES ABSOLUTE AUTO 1.57 K/uL (1.00-4.80); LYMPHOCYTES PERCENT AUTO 26.1 % (24.0-44.0); MEAN PLATELET VOLUME 10.1 fL (9.4-12.3); MONOCYTES ABSOLUTE AUTO 0.45 K/uL (0.00-0.80); MONOCYTES PERCENT AUTO 7.5 % (0.0-8.0); NEUTROPHILS ABSOLUTE AUTO 3.84 K/uL (1.80-7.70); NEUTROPHILS PERCENT AUTO 63.8 % (41.0-71.0); NRBC ABSOLUTE 0.00 K/uL (0.00-0.02); NRBC PERCENT 0.0 /100WBC (0.0-0.2); RED BLOOD CELL COUNT 4.18 M/uL (4.10-5.30); WHITE BLOOD CELL COUNT,WBC 6.02 K/uL (3.9-11.3)
[2025-03-09 14:13] LABS: PLATELET COUNT,PLT 180 K/uL (150-400)
[2025-03-09] MEDS: Dexamethasone Sod Phos Preservative Free 10 MG/ML Vial IVPUSH ONE (14:51)
[2025-03-09] MEDS: cefTRIAXone 1 GM in Water For Injection, Sterile 10 ML IVPUSH ONE (14:51)
[2025-03-09] MEDS ORDERED: Ondansetron 4 MG/2 ML SDV IVPUSH PRN (15:16)
[2025-03-09] MEDS ORDERED: Sodium Chloride 0.9% 10 ML Syringe FLUSH PRN (15:16)
[2025-03-09] MEDS ORDERED: Sodium Chloride 0.9% 2.5 ML Syringe FLUSH PRN (15:16)
[2025-03-09 15:25] LABS: GLUCOSE,URINE NEGATIVE (NEGATIVE); OCCULT BLOOD,URINE NEGATIVE (NEGATIVE)
[2025-03-09 15:32] LABS: APPEARANCE,URINE HAZY
[2025-03-09 15:33] LABS: SQUAMOUS EPITHELIAL CELLS,UR FEW
[2025-03-09] MEDS: Heparin Sodium 5,000 Units/ML Vial SUBCUT SCH (15:51)
[2025-03-09] MEDS: Pantoprazole 40 MG in Sodium Chloride 0.9% 10 ML IVPUSH SCH (15:51)
[2025-03-09 17:06] LABS: LACTIC ACID 1.4 mmol/L (0.4-2.0)
[2025-03-09] MEDS: Carboxymethylcellulose Sodium 0.5% Ophth Soln 0.4 ML UD Box of 30 EYEBOTH SCH (20:50)
[2025-03-10 06:48] LABS: BASOPHILS ABSOLUTE AUTO 0.00 K/uL (0.00-0.20); BASOPHILS PERCENT AUTO 0.0 % (0.0-1.0); EOSINOPHILS ABSOLUTE AUTO 0.00 K/uL (0.00-0.45); EOSINOPHILS PERCENT AUTO 0.0 % (0.0-6.0); IMMATURE GRAN ABSOLUTE AUTO 0.09 K/uL (0.00-0.05); IMMATURE GRAN PERCENT AUTO 1.5 % (0.0-0.4); LYMPHOCYTES ABSOLUTE AUTO 0.72 K/uL (1.00-4.80); LYMPHOCYTES PERCENT AUTO 12.3 % (24.0-44.0); MEAN PLATELET VOLUME 9.6 fL (9.4-12.3); MONOCYTES ABSOLUTE AUTO 0.10 K/uL (0.00-0.80); MONOCYTES PERCENT AUTO 1.7 % (0.0-8.0); NEUTROPHILS ABSOLUTE AUTO 4.95 K/uL (1.80-7.70); NEUTROPHILS PERCENT AUTO 84.5 % (41.0-71.0); NRBC ABSOLUTE 0.00 K/uL (0.00-0.02); NRBC PERCENT 0.0 /100WBC (0.0-0.2); PLATELET COUNT,PLT 233 K/uL (150-400); RED BLOOD CELL COUNT 3.80 M/uL (4.10-5.30); WHITE BLOOD CELL COUNT,WBC 5.86 K/uL (3.9-11.3)
[2025-03-10 07:09] LABS: BLOOD UREA NITROGEN,BUN 27.0 mg/dL (7.0-18.0); CARBON DIOXIDE,CO2 17.9 mmol/L (21.0-32.0); CHLORIDE,CL 115.0 mmol/L (98-107); CREATININE 1.3 mg/dL (0.6-1.0); EST CRCL DRUG DOSING (CG) 27.35 mL/min; GLUCOSE RANDOM 124.0 mg/dL (74-106); POTASSIUM,K 4.1 mmol/L (3.5-5.1); SODIUM,NA 144.0 mmol/L (136-145)
[2025-03-10 07:10] LABS: ESTIMATED GFR 42.0 mL/min (>60)
[2025-03-10] MEDS: cefTRIAXone 1 GM in Water For Injection, Sterile 10 ML IVPUSH SCH (11:22)
[2025-03-11 05:07] LABS: BORDETELLA PARAPERT IS1001 Not Detected (Not Detected)
[2025-03-11 06:15] LABS: BASOPHILS ABSOLUTE AUTO 0.04 K/uL (0.00-0.20); BASOPHILS PERCENT AUTO 0.5 % (0.0-1.0); EOSINOPHILS ABSOLUTE AUTO 0.08 K/uL (0.00-0.45); EOSINOPHILS PERCENT AUTO 1.0 % (0.0-6.0); IMMATURE GRAN ABSOLUTE AUTO 0.17 K/uL (0.00-0.05); IMMATURE GRAN PERCENT AUTO 2.1 % (0.0-0.4); LYMPHOCYTES ABSOLUTE AUTO 2.51 K/uL (1.00-4.80); LYMPHOCYTES PERCENT AUTO 30.7 % (24.0-44.0); MEAN PLATELET VOLUME 9.3 fL (9.4-12.3); MONOCYTES ABSOLUTE AUTO 0.51 K/uL (0.00-0.80); MONOCYTES PERCENT AUTO 6.2 % (0.0-8.0); NEUTROPHILS ABSOLUTE AUTO 4.86 K/uL (1.80-7.70); NEUTROPHILS PERCENT AUTO 59.5 % (41.0-71.0); NRBC ABSOLUTE 0.00 K/uL (0.00-0.02); NRBC PERCENT 0.0 /100WBC (0.0-0.2); PLATELET COUNT,PLT 231 K/uL (150-400); RED BLOOD CELL COUNT 3.81 M/uL (4.10-5.30); WHITE BLOOD CELL COUNT,WBC 8.17 K/uL (3.9-11.3)
[2025-03-11 06:33] LABS: BLOOD UREA NITROGEN,BUN 28.0 mg/dL (7.0-18.0); CARBON DIOXIDE,CO2 19.6 mmol/L (21.0-32.0); CHLORIDE,CL 113.0 mmol/L (98-107); CREATININE 1.3 mg/dL (0.6-1.0); EST CRCL DRUG DOSING (CG) 27.35 mL/min; GLUCOSE RANDOM 88.0 mg/dL (74-106); POTASSIUM,K 4.1 mmol/L (3.5-5.1); SODIUM,NA 145.0 mmol/L (136-145)
[2025-03-11 06:40] LABS: ESTIMATED GFR 42.0 mL/min (>60)
[2025-03-12 08:54] LABS: BASOPHILS ABSOLUTE AUTO 0.07 K/uL (0.00-0.20); BASOPHILS PERCENT AUTO 0.8 % (0.0-1.0); EOSINOPHILS ABSOLUTE AUTO 0.23 K/uL (0.00-0.45); EOSINOPHILS PERCENT AUTO 2.5 % (0.0-6.0); IMMATURE GRAN ABSOLUTE AUTO 0.30 K/uL (0.00-0.05); IMMATURE GRAN PERCENT AUTO 3.3 % (0.0-0.4); LYMPHOCYTES ABSOLUTE AUTO 1.76 K/uL (1.00-4.80); LYMPHOCYTES PERCENT AUTO 19.2 % (24.0-44.0); MEAN PLATELET VOLUME 9.4 fL (9.4-12.3); MONOCYTES ABSOLUTE AUTO 0.53 K/uL (0.00-0.80); MONOCYTES PERCENT AUTO 5.8 % (0.0-8.0); NEUTROPHILS ABSOLUTE AUTO 6.28 K/uL (1.80-7.70); NEUTROPHILS PERCENT AUTO 68.4 % (41.0-71.0); NRBC ABSOLUTE 0.00 K/uL (0.00-0.02); NRBC PERCENT 0.0 /100WBC (0.0-0.2); PLATELET COUNT,PLT 224 K/uL (150-400); RED BLOOD CELL COUNT 4.12 M/uL (4.10-5.30); WHITE BLOOD CELL COUNT,WBC 9.17 K/uL (3.9-11.3)
[2025-03-12 09:26] LABS: BLOOD UREA NITROGEN,BUN 19.0 mg/dL (7.0-18.0); CARBON DIOXIDE,CO2 21.1 mmol/L (21.0-32.0); CHLORIDE,CL 111.0 mmol/L (98-107); CREATININE 1.3 mg/dL (0.6-1.0); EST CRCL DRUG DOSING (CG) 27.35 mL/min; GLUCOSE RANDOM 148.0 mg/dL (74-106); POTASSIUM,K 4.0 mmol/L (3.5-5.1); SODIUM,NA 144.0 mmol/L (136-145)
[2025-03-12 09:37] LABS: ESTIMATED GFR 42.0 mL/min (>60)
[2025-03-12] MEDS: Sennosides/Docusate Sodium 50-8.6 MG Tab PO ONE (09:44)
[2025-03-12 11:03] VITALS: BP 148/62; PULSE 76
== END 2025-03-12 11:40 | DRG 682 ==
LOC: MW.ED 12:27 → MW.MS 15:10
PROVIDERS: ADMIT Internal Medicine; ATTEND Internal Medicine
PROC: 3E03329 Introduction of Other Anti-infective into Peripheral Vein, Percutaneous Approach (ICD-10-PCS; principal; 2025-03-09)
PROC: 3E0333Z Introduction of Anti-inflammatory into Peripheral Vein, Percutaneous Approach (ICD-10-PCS; 2025-03-09)
DX: N17.9 Acute kidney failure, unspecified (principal); E86.0 Dehydration; J18.9 Pneumonia, unspecified organism; I10 Essential (primary) hypertension; E87.20 Acidosis, unspecified; F05 Delirium due to known physiological condition; Z75.3 Unavailability and inaccessibility of health-care facilities; J02.0 Streptococcal pharyngitis; N18.9 Chronic kidney disease, unspecified; K44.9 Diaphragmatic hernia without obstruction or gangrene; K21.9 Gastro-esophageal reflux disease without esophagitis; M19.90 Unspecified osteoarthritis, unspecified site; Z96.649 Presence of unspecified artificial hip joint; Z96.659 Presence of unspecified artificial knee joint; Z96.619 Presence of unspecified artificial shoulder joint; K59.00 Constipation, unspecified; Z98.890 Other specified postprocedural states; Z87.19 Personal history of other diseases of the digestive system; Z90.49 Acquired absence of other specified parts of digestive tract; Z98.84 Bariatric surgery status; Z88.6 Allergy status to analgesic agent; Z79.82 Long term (current) use of aspirin; Z79.899 Other long term (current) drug therapy; Z97.3 Presence of spectacles and contact lenses; Z86.69 Personal history of other diseases of the nervous system and sense organs
CPT/HCPCS: 36415; 71045; 80053; 81001; 83690; 83735; 83880; 85025; 87086; 87428; 87651; 96360; 99285; J0696; J1100; J7030; 74176; 74176-26; 80048; 83605; 87486; 87581; 87633; 99222; 99231; 99232; 99238; A9270-GY; J0456; J1644; J2470; J7050